=== PATIENT | female | born 1930 | race Caucasian/White ===

== ENCOUNTER 2016-07-20 11:10 | Inpatient (IN) | payer MEDICARE, OTHER ==
[~2016-07-20] VITALS: Ht 157.5 cm; Wt 69.4 kg
[~2016-07-20 11:10] MED LIST: AMPICILLIN 500500 MG PO
[2016-07-20 12:39] LABS: HEMOGLOBIN 11.4 gm/dl (12.3-15.3); RED BLOOD COUNT 4.01 M/UL (4.00-5.10); WHITE BLOOD COUNT 13.2 K/UL (4.5-11.0)
[2016-07-20 12:53] LABS: BUN/CREATININE RATIO 29 (0-10)
[2016-07-21 07:17] LABS: RED BLOOD COUNT 3.86 M/UL (4.00-5.10); WHITE BLOOD COUNT 11.5 K/UL (4.5-11.0)
[2016-07-21 07:47] LABS: BUN/CREATININE RATIO 28 (0-10)
[2016-07-21] MEDS ORDERED: SYNTHROID100 MCG PO (09:22)
[2016-07-21] MEDS ORDERED: GLUCOPHAGE500 MG PO (09:26)
[2016-07-21] MEDS ORDERED: PLAVIX 75 MG TA75 MG PO (09:26)
[2016-07-21] MEDS ORDERED: GLUCOTROL XL 5 M5 MG PO (09:27)
[2016-07-21] MEDS ORDERED: PROTONIX40 MG PO (09:28)
[2016-07-21] MEDS ORDERED: IMDUR ER TAB 3030 MG PO (09:28)
[2016-07-21] MEDS ORDERED: LOPRESSOR50 MG PO (09:29)
[2016-07-21] MEDS ORDERED: ASPIRIN EC81 MG PO (09:31)
[2016-07-22 05:50] LABS: HEMOGLOBIN 10.5 gm/dl (12.3-15.3); RED BLOOD COUNT 3.73 M/UL (4.00-5.10); WHITE BLOOD COUNT 9.2 K/UL (4.5-11.0)
[2016-07-22 06:10] LABS: BUN/CREATININE RATIO 33 (0-10)
[2016-07-23 04:15] LABS: HEMOGLOBIN 10.5 gm/dl (12.3-15.3); RED BLOOD COUNT 3.76 M/UL (4.00-5.10); WHITE BLOOD COUNT 8.5 K/UL (4.5-11.0)
[2016-07-23 04:37] LABS: BUN/CREATININE RATIO 30 (0-10)
[2016-07-24 04:20] LABS: HEMOGLOBIN 10.3 gm/dl (12.3-15.3); RED BLOOD COUNT 3.69 M/UL (4.00-5.10)
[2016-07-24 04:28] LABS: BUN/CREATININE RATIO 32 (0-10)
[2016-07-24 04:38] LABS: WHITE BLOOD COUNT 10.8 K/UL (4.5-11.0)
[2016-07-25 04:22] LABS: HEMOGLOBIN 10.3 gm/dl (12.3-15.3); RED BLOOD COUNT 3.69 M/UL (4.00-5.10)
[2016-07-25 04:24] LABS: WHITE BLOOD COUNT 13.9 K/UL (4.5-11.0)
[2016-07-25 04:37] LABS: BUN/CREATININE RATIO 29 (0-10)
[2016-07-26 03:37] LABS: BUN/CREATININE RATIO 32 (0-10)
[2016-07-26 13:42] LABS: TOTAL PROTEIN, BODY FLUID 2.7 gm/dL
[2016-07-26 13:43] LABS: LDH, BODY FLUID 425 U/L
[2016-07-26 14:12] LABS: BODY FLUID SOURCE PLEURAL
[2016-07-27 03:39] LABS: HEMOGLOBIN 10.5 gm/dl (12.3-15.3); RED BLOOD COUNT 3.65 M/UL (4.00-5.10); WHITE BLOOD COUNT 10.9 K/UL (4.5-11.0)
[2016-07-27 04:12] LABS: BUN/CREATININE RATIO 28 (0-10)
[2016-07-28 04:16] LABS: BUN/CREATININE RATIO 23 (0-10)
[2016-07-29 03:25] LABS: HEMOGLOBIN 11.2 gm/dl (12.3-15.3); RED BLOOD COUNT 4.06 M/UL (4.00-5.10); WHITE BLOOD COUNT 12.2 K/UL (4.5-11.0)
[2016-07-29 03:55] LABS: BUN/CREATININE RATIO 28 (0-10)
[2016-07-30 03:40] LABS: HEMOGLOBIN 11.1 gm/dl (12.3-15.3); RED BLOOD COUNT 3.96 M/UL (4.00-5.10)
[2016-07-30 03:56] LABS: BUN/CREATININE RATIO 32 (0-10)
[2016-07-31 05:18] LABS: HEMOGLOBIN 11.4 gm/dl (12.3-15.3); RED BLOOD COUNT 4.07 M/UL (4.00-5.10); WHITE BLOOD COUNT 14.1 K/UL (4.5-11.0)
[2016-07-31 05:37] LABS: BUN/CREATININE RATIO 40 (0-10)
[2016-08-01 05:49] LABS: HEMOGLOBIN 11.2 gm/dl (12.3-15.3); RED BLOOD COUNT 4.1 M/UL (4.00-5.10); WHITE BLOOD COUNT 11.9 K/UL (4.5-11.0)
[2016-08-01 06:20] LABS: BUN/CREATININE RATIO 37 (0-10)
[2016-08-02 03:41] LABS: HEMOGLOBIN 11.3 gm/dl (12.3-15.3); RED BLOOD COUNT 4.06 M/UL (4.00-5.10); WHITE BLOOD COUNT 11.9 K/UL (4.5-11.0)
[2016-08-02 04:08] LABS: BUN/CREATININE RATIO 38 (0-10)
[2016-08-03 03:32] LABS: BUN/CREATININE RATIO 42 (0-10)
[2016-08-04 03:52] LABS: HEMOGLOBIN 10.9 gm/dl (12.3-15.3); RED BLOOD COUNT 4.02 M/UL (4.00-5.10); WHITE BLOOD COUNT 11.4 K/UL (4.5-11.0)
[2016-08-04 04:09] LABS: BUN/CREATININE RATIO 36 (0-10)
[2016-08-05 05:11] LABS: HEMOGLOBIN 10.8 gm/dl (12.3-15.3); RED BLOOD COUNT 3.94 M/UL (4.00-5.10); WHITE BLOOD COUNT 10.3 K/UL (4.5-11.0)
[2016-08-05 05:37] LABS: BUN/CREATININE RATIO 38 (0-10)
[2016-08-07 05:06] LABS: HEMOGLOBIN 10.1 gm/dl (12.3-15.3); RED BLOOD COUNT 3.66 M/UL (4.00-5.10); WHITE BLOOD COUNT 10.7 K/UL (4.5-11.0)
[2016-08-07 05:17] LABS: BUN/CREATININE RATIO 48 (0-10)
[2016-08-08 05:07] LABS: BUN/CREATININE RATIO 50 (0-10)
[2016-08-09 04:04] LABS: BUN/CREATININE RATIO 40 (0-10)
[2016-08-10] MEDS ORDERED: MOBIC7.5 MG PO (16:42)
[2016-08-10] MEDS ORDERED: COLCHICINE0.6 MG PO (17:46)
[2016-08-10] MEDS ORDERED: LIPITOR TAB 2020 MG PO (17:46)
[2016-08-10] MEDS ORDERED: ENSURE LIQUID237 ML PO (17:47)
[2016-08-10] MEDS ORDERED: LANOXIN TAB0.125 MG PO (17:55)
[2016-08-10] MEDS ORDERED: CARDIZEM CD180 MG PO ×2 (17:56→18:26)
[2016-08-10] MEDS ORDERED: LASIX20 MG PO (17:57)
[2016-08-10] MEDS ORDERED: LEVEMIR100 UNIT/1 SQ (18:25)
[2016-08-10] MEDS ORDERED: ELIQUIS2.5 MG PO (18:28)
--- NOTE | 2016-08-10 18:37 | NUR ---
REPORTED TO ADMITTING NURSE AT [facility] INFOR[facility] CARE THAT PATIENT IS GOING HOME TODAY
--- NOTE | 2016-08-11 16:55 | NUR ---
LATE ENTRY:: 08/10/2016 DURING DISCHARGE PROCESS ::::FAMILY STATED TAKING PATIENT HOME WITH PALATIVE CARE SERVICES ONLY. VERBALIZED WILL NOT FILL NEW SCRIPTS WILL ONLY CONTINUE HOME MEDS. EDUCATION AND DISCHARE TEACHING PROVIDED AND NEW SCRIPTS GIVEN ORDERED PER DR. PAZ.
== END 2016-08-10 20:33 | DRG 871 ==
LOC: ER1 11:10 → ZEROF 14:57 → PROG CARE 14:57 → MED SURG 4 14:57 → PROG CARE 07-21 12:35 → MED SURG 4 08-06 15:35
PROVIDERS: Emergency Medicine; Family Medicine; Internal Medicine; Internal Medicine Infectious Disease; Internal Medicine Pulmonary Disease; ADMIT Internal Medicine
PROC: 0W9B3ZZ Drainage of Left Pleural Cavity, Percutaneous Approach (ICD-10-PCS; principal; 2016-07-26)
PROC: 0S9C3ZX Drainage of Right Knee Joint, Percutaneous Approach, Diagnostic (ICD-10-PCS; 2016-07-30)
PROC: 0W9B30Z Drainage of Left Pleural Cavity with Drainage Device, Percutaneous Approach (ICD-10-PCS; 2016-07-30)
PROC: 0WPB30Z Removal of Drainage Device from Left Pleural Cavity, Percutaneous Approach (ICD-10-PCS; 2016-08-04)
PROC: 0S9C3ZX Drainage of Right Knee Joint, Percutaneous Approach, Diagnostic (ICD-10-PCS; 2016-08-06)
DX: A41.9 Sepsis, unspecified organism (principal); J18.9 Pneumonia, unspecified organism; I21.4 Non-ST elevation (NSTEMI) myocardial infarction; I50.23 Acute on chronic systolic (congestive) heart failure; J96.20 Acute and chronic respiratory failure, unspecified whether with hypoxia or hypercapnia; N30.00 Acute cystitis without hematuria; J91.8 Pleural effusion in other conditions classified elsewhere; E87.1 Hypo-osmolality and hyponatremia; Z51.5 Encounter for palliative care; I11.0 Hypertensive heart disease with heart failure; Z66 Do not resuscitate; I48.2 Chronic atrial fibrillation; M11.261 Other chondrocalcinosis, right knee; I25.10 Atherosclerotic heart disease of native coronary artery without angina pectoris; I25.5 Ischemic cardiomyopathy; R07.89 Other chest pain; E11.9 Type 2 diabetes mellitus without complications; E03.9 Hypothyroidism, unspecified; E78.5 Hyperlipidemia, unspecified; I25.2 Old myocardial infarction; Z86.73 Personal history of transient ischemic attack (TIA), and cerebral infarction without residual deficits; Z96.643 Presence of artificial hip joint, bilateral; Z72.3 Lack of physical exercise; B96.89 Other specified bacterial agents as the cause of diseases classified elsewhere; R53.1 Weakness; M17.12 Unilateral primary osteoarthritis, left knee; I27.2 Other secondary pulmonary hypertension; B35.4 Tinea corporis; Z79.82 Long term (current) use of aspirin; Z79.84 Long term (current) use of oral hypoglycemic drugs; Z79.899 Other long term (current) drug therapy
CPT/HCPCS: ECHO; 36415; 71010; 73560; 80048; 80053; 80202; 81001; 82150; 82550; 82553; 82945; 82962; 83036; 83605; 83615; 83735; 83874; 83880; 83986; 84075; 84132; 84157; 84439; 84443; 84484; 85025; 85027; 85610; 85730; 86140; 87040; 87070; 87077; 87086; 87186; 87205; 89051; 89060; 92526; 92610; 93005; 93306; 94640; 94664; 96361; 96365; 96372; 97110; 97530; 97535; 99291; J0456; J0461; J0696; J1815; J1940; J3370; J7030; J7050; J7070